=== PATIENT | female | born 1970 | race Caucasian/White ===

== ENCOUNTER 2016-09-09 07:30 | Emergency (ER) | payer OTHER ==
[2016-09-09] MEDS ORDERED: Ondansetron INJ* 2 MG/ML VIAL IV ONE (08:00)
[2016-09-09] MEDS ORDERED: Famotidine IV* 10 MG/ML 2 ML (20 mg) IV ONE (08:00)
[2016-09-09] MEDS ORDERED: Morphine INJ* 2 MG/ML 1 ML CARPUJECT IV ONE ×2 (08:00→10:17)
[2016-09-09] MEDS ORDERED: Acetaminophen TAB* 325 MG PO ONE ×2 (08:00→09:00)
[2016-09-09] MEDS: NS 0.9% 1000 ML* 2,000 ML IV ONE ×2 (08:36→10:40)
[2016-09-09 08:41] LABS: Hematocrit 44 % (35-47); Hemoglobin 14.8 g/dl (12.0-16.0); Mean Corpuscular HGB Conc 34 g/dl (31-36); Mean Corpuscular Hemoglobin 29 pg (27-31); Mean Corpuscular Volume 85 fL (80-97); Mean Platelet Volume 9 um3 (7.4-10.4); Red Blood Count 5.17 10^6/ul (4.0-5.4); Red Cell Distribution Width 13 % (10.5-15); White Blood Count 8.5 10^3/ul (3.5-10.8)
[2016-09-09 08:54] LABS: Albumin 3.3 g/dL (3.2-5.2); BUN/Creatinine Ratio 25.8 (8-20); C Reactive Protein 6.98 mg/L (< 5.00); Calcium 8.7 mg/dL (8.6-10.3); EGFR African American 123.5 (>60); Globulin 3.6 g/dL (2-4); Magnesium 1.6 mg/dL (1.9-2.7); Potassium 3.7 mmol/L (3.5-5.0); Total Bilirubin 0.9 mg/dL (0.2-1.0); Total Protein 6.9 g/dL (6.4-8.9)
--- NOTE | 2016-09-09 10:29 | ED ---
Influenza-Like Illness - HPI Summary HPI Summary: Patient is a 46yo type 1 diabetic who presents to ED with 2 hours of severe muscle aches, N/V, headache and abdominal pain. She states she feels it is the flu, but has received the flu vaccine this year. She has vomited 2x and continues to be nauseous. Fever highest at 101.3. Denies sick contacts or travel. Type 1 diabetic, but otherwise healthy and controls here sugars well at home. Today glucose is 243. - History of Current Complaint Chief Complaint: EDFluSymptoms Time Seen by Provider: 09/09/16 07:55 Hx Obtained From: Patient Onset/Duration: Sudden Onset Severity: Moderate Associated Signs & Symptoms: Fever, T Max - 101.3, Myalgia, Headache, Vomiting - Risk Factors Influenza Risk Factors: Chronic Medical or Immunosuppresive Condition - diabetic - Allergy/Home Medications Allergies/Adverse Reactions: Allergies Allergy/AdvReac Type Severity Reaction Status Date / Time No Known Allergies Allergy Verified 09/09/16 07:34 PMH/Surg Hx/FS Hx/Imm Hx Previously Healthy: Yes Endocrine/Hematology History: Reports: Hx Diabetes - type 1 Denies: Hx Thyroid Disease, Hx Anemia Cardiovascular History: Reports: Hx Hypercholesterolemia, Hx Hypertension Respiratory History: Denies: Hx Asthma, Hx Chronic Obstructive Pulmonary Disease (COPD) GI History: Denies: Hx Jaundice, Hx Ulcer Neurological History: Reports: 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 - Surgical History Surgery Procedure, Year, and Place: cyst drainage Infectious Disease History: No Infectious Disease History: Denies: Hx Hepatitis, Hx Human Immunodeficiency Virus (HIV), History Other Infectious Disease, Traveled Outside the in Last 30 Days - Family History Known Family History: Positive: None - Social History Occupation: Employed Full-time Lives: With Family Alcohol Use: Rare Alcohol Amount: holidays Hx Substance Use: No Substance Use Type: Reports: None Hx Tobacco Use: No Smoking Status (MU): Never Smoked Tobacco Do You Chew or Dip Tobacco: No Review of Systems Positive: Fever, Fatigue Eyes: Negative ENT: Negative Cardiovascular: Negative Respiratory: Negative Positive: Abdominal Pain, Vomiting Genitourinary: Negative Positive: no symptoms reported Positive: Myalgia - diffuse Skin: Negative Positive: Headache Psychological: Normal All Other Systems Reviewed And Are Negative: Yes Physical Exam Triage Information Reviewed: Yes Vital Signs On Initial Exam: Initial Vitals Temp Pulse Resp BP Pulse Ox 99.7 F 105 18 115/77 100 09/09/16 07:31 09/09/16 07:31 09/09/16 07:31 09/09/16 07:31 09/09/16 07:31 Vital Signs Reviewed: Yes Appearance: Positive: Ill-Appearing, Pain Distress Skin: Positive: Warm, Skin Color Reflects Adequate Perfusion Head/Face: Positive: Normal Head/Face Inspection Eyes: Positive: Normal, Conjunctiva Clear ENT: Positive: Pharynx normal Neck: Positive: Supple, Nontender Respiratory/Lung Sounds: Positive: Clear to Auscultation, Breath Sounds Present Cardiovascular: Positive: Normal Abdomen Description: Positive: Soft, Other: - tender in all 4 quadrants Bowel Sounds: Positive: Present Musculoskeletal: Positive: Pain @ - diffuse tenderness Neurological: Positive: Normal, Sensory/Motor Intact Psychiatric: Positive: Normal AVPU Assessment: Alert - Recluse Coma Scale Coma Scale Total: 15 Diagnostics - Vital Signs Vital Signs Temp Pulse Resp BP Pulse Ox 09/09/16 09:30 89 130/85 97 09/09/16 09:00 101 F 89 113/63 92 09/09/16 08:36 16 09/09/16 08:30 101 125/78 99 09/09/16 08:00 94 116/78 97 09/09/16 07:52 88 98 09/09/16 07:50 103/59 09/09/16 07:31 99.7 F 105 18 115/77 100 - Laboratory Lab Results: Lab Results 09/09/16 09/09/16 09/09/16 Range/Units 07:53 08:30 08:30 WBC 8.5 (3.5-10.8) 10^3/ul RBC 5.17 (4.0-5.4) 10^6/ul Hgb 14.8 (12.0-16.0) g/dl Hct 44 (35-47) % MCV 85 (80-97) fL MCH 29 (27-31) pg MCHC 34 (31-36) g/dl RDW 13 (10.5-15) % Plt Count 131 L (150-450) 10^3/ul MPV 9 (7.4-10.4) um3 Neut % (Auto) 92.1 H (38-83) % Lymph % (Auto) 3.8 L (25-47) % Merrick % (Auto) 3.6 (1-9) % Eos % (Auto) 0.4 (0-6) % Baso % (Auto) 0.1 (0-2) % Absolute Neuts (auto) 7.8 H (1.5-7.7) 10^3/ul Absolute Lymphs (auto) 0.3 L (1.0-4.8) 10^3/ul Absolute Monos (auto) 0.3 (0-0.8) 10^3/ul Absolute Eos (auto) 0 (0-0.6) 10^3/ul Absolute Basos (auto) 0 (0-0.2) 10^3/ul Absolute Nucleated RBC 0 10^3/ul Nucleated RBC % 0 Sodium 135 (133-145) mmol/L Potassium 3.7 (3.5-5.0) mmol/L Chloride 101 (101-111) mmol/L Carbon Dioxide 28 (22-32) mmol/L Anion Gap 6 (2-11) mmol/L BUN 17 (6-24) mg/dL Creatinine 0.66 (0.51-0.95) mg/dL Est GFR ( Amer) 123.5 (>60) Est GFR (Non-Af Amer) 96.0 (>60) BUN/Creatinine Ratio 25.8 H (8-20) Glucose 254 H (70-100) mg/dL POC Glucose (mg/dL) 243 H (74-106) mg/dL Lactic Acid (0.5-2.0) mmol/L Calcium 8.7 (8.6-10.3) mg/dL Magnesium 1.6 L (1.9-2.7) mg/dL Total Bilirubin 0.90 (0.2-1.0) mg/dL AST 19 (13-39) U/L ALT 24 (7-52) U/L Alkaline Phosphatase 70 (34-104) U/L C-Reactive Protein 6.98 H (< 5.00) mg/L Total Protein 6.9 (6.4-8.9) g/dL Albumin 3.3 (3.2-5.2) g/dL Globulin 3.6 (2-4) g/dL Albumin/Globulin Ratio 0.9 L (1-3) Lipase 13 (11.0-82.0) U/L Influenza A (Rapid) (Negative) Influenza B (Rapid) (Negative) 09/09/16 09/09/16 Range/Units 08:30 09:34 WBC (3.5-10.8) 10^3/ul RBC (4.0-5.4) 10^6/ul Hgb (12.0-16.0) g/dl Hct (35-47) % MCV (80-97) fL MCH (27-31) pg MCHC (31-36) g/dl RDW (10.5-15) % Plt Count (150-450) 10^3/ul MPV (7.4-10.4) um3 Neut % (Auto) (38-83) % Lymph % (Auto) (25-47) % Merrick % (Auto) (1-9) % Eos % (Auto) (0-6) % Baso % (Auto) (0-2) % Absolute Neuts (auto) (1.5-7.7) 10^3/ul Absolute Lymphs (auto) (1.0-4.8) 10^3/ul Absolute Monos (auto) (0-0.8) 10^3/ul Absolute Eos (auto) (0-0.6) 10^3/ul Absolute Basos (auto) (0-0.2) 10^3/ul Absolute Nucleated RBC 10^3/ul Nucleated RBC % Sodium (133-145) mmol/L Potassium (3.5-5.0) mmol/L Chloride (101-111) mmol/L Carbon Dioxide (22-32) mmol/L Anion Gap (2-11) mmol/L BUN (6-24) mg/dL Creatinine (0.51-0.95) mg/dL Est GFR ( Amer) (>60) Est GFR (Non-Af Amer) (>60) BUN/Creatinine Ratio (8-20) Glucose (70-100) mg/dL POC Glucose (mg/dL) (74-106) mg/dL Lactic Acid 0.8 (0.5-2.0) mmol/L Calcium (8.6-10.3) mg/dL Magnesium (1.9-2.7) mg/dL Total Bilirubin (0.2-1.0) mg/dL AST (13-39) U/L ALT (7-52) U/L Alkaline Phosphatase (34-104) U/L C-Reactive Protein (< 5.00) mg/L Total Protein (6.4-8.9) g/dL Albumin (3.2-5.2) g/dL Globulin (2-4) g/dL Albumin/Globulin Ratio (1-3) Lipase (11.0-82.0) U/L Influenza A (Rapid) Negative (Negative) Influenza B (Rapid) Negative (Negative) Result Diagrams: 09/09/16 08:30 09/09/16 08:30 Lab Statement: Any lab studies that have been ordered have been reviewed, and results considered in the medical decision making process. Flu Symptom Course/Dx - Course Course Of Treatment: Patient negative for flu. Type 1 diabetic. Glucose at 243. Otherwise healthy. N/V and muscle aches improved with fluids and medications. Morphine given twice d/t new onset KAY while in ED. Patient improved and feeling OK to go home and follow up with PCP. Prescription for zofran given. Patient agrees with plan. Provider sent Dr. Rubio information regarding visit. - Diagnoses Differential Diagnosis/HQI/PQRI: Positive: Pneumonia, Upper Respiratory Infection Provider Diagnoses: Nausea & vomiting - Physician Notifications Instructed by Provider To: Have Pt Call For Appt. Discharge - Discharge Plan Condition: Stable Disposition: HOME Prescriptions: Ondansetron ODT TAB* [Zofran Odt TAB*] 4 mg PO Q6H PRN #15 tab.odt MDD 6 PRN Reason: Nausea Patient Education Materials: Acute Nausea and Vomiting (ED) Forms: *Work Release Referrals: Orlando Rubio MD [Primary Care Provider] - Additional Instructions: Tylenol 650 every 8 hours as needed for fever and discomfort Rest for the next few days while you are recovering. You may take Zofran as prescribed to you for nausea. Follow up with your PCP. Call tommorow to make appt. Closely follow your sugars during this time, and checking your glucose levels more often than you normally would.
[2016-09-09 10:40] VITALS: BP 114/72
== END 2016-09-09 11:44 | disposition home or self-care (01) ==
LOC: ED 07:30
DX: R11.2 Nausea with vomiting, unspecified (principal); E10.9 Type 1 diabetes mellitus without complications
CPT/HCPCS: 36415; 80053; 83605; 83690; 83735; 85025; 86140; 87502; 99283; A9270-GY; J2270; J2405

== ENCOUNTER 2016-10-01 13:14 | Emergency (ER) | payer OTHER ==
[2016-10-01 13:50] VITALS: BP 117/72
--- NOTE | 2016-10-01 15:08 | UC ---
Back Pain HPI - HPI Summary HPI Summary: complaint of lower back pain that was radiating into her right leg which started this morning pain has been intermittent ambulating makes the pain worse NSAIDS lessen the pain denies any trauma, heavy lifting denies fever and incontinence took some ibuprofen with some relief - History of Current Complaint Chief Complaint: UCBackPain Stated Complaint: LOW BACK AND LEG PAIN Time Seen by Provider: 10/01/16 14:59 Hx Obtained From: Patient Hx Last Menstrual Period: POST MENOPAUSAL Onset/Duration: Sudden Onset, Lasting Hours, Still Present Character: Dull, Aching Aggravating: Movement Alleviating: OTC Meds Associated Signs And Symptoms: Positive: Negative - Allergies/Home Medications Allergies/Adverse Reactions: Allergies Allergy/AdvReac Type Severity Reaction Status Date / Time No Known Allergies Allergy Verified 09/09/16 07:34 PMH/Surg Hx/FS Hx/Imm Hx Previously Healthy: Yes Endocrine History Of: Reports: Diabetes - type 1, Thyroid Disease - HYPOTHYROID Cardiovascular History Of: Reports: Hypertension Denies: Cardiac Disorders Respiratory History Of: Denies: COPD, Asthma GI/ History Of: Denies: Ulcer - Surgical History Surgical History: Yes Surgery Procedure, Year, and Place: cyst drainage - Family History Known Family History: Positive: None - Social History Occupation: Employed Full-time Lives: With Family Alcohol Use: Rare Alcohol Amount: holidays Substance Use Type: None Smoking Status (MU): Never Smoked Tobacco - Immunization History Most Recent Influenza Vaccination: none Most Recent Tetanus Shot: within 10 years Most Recent Pneumonia Vaccination: never Review of Systems Constitutional: Negative Skin: Negative Eyes: Negative ENT: Negative Respiratory: Negative Cardiovascular: Negative Gastrointestinal: Negative Genitourinary: Negative Motor: Negative Neurovascular: Negative Musculoskeletal: Other: - lower back pain Neurological: Negative Psychological: Negative All Other Systems Reviewed And Are Negative: Yes Physical Exam Triage Information Reviewed: Yes Appearance: No Pain Distress, Well-Nourished Vital Signs: Initial Vital Signs Temp 98.3 F 10/01/16 13:46 Pulse 63 10/01/16 13:46 Resp 16 10/01/16 13:46 BP 117/72 10/01/16 13:46 Pulse Ox 100 10/01/16 13:46 Vital Signs Reviewed: Yes Eyes: Positive: Conjunctiva Clear ENT: Positive: Pharynx normal Neck: Positive: Supple, Nontender Respiratory: Positive: Lungs clear, Normal breath sounds Cardiovascular: Positive: RRR, No Murmur, Pulses Normal Abdomen Description: Positive: Nontender, No Organomegaly, Soft Bowel Sounds: Positive: Present Musculoskeletal: Positive: No Edema, Other: - right sided paraspinal lumbar tenderness no ecchymosis no pain with percussion of spine Neurological: Positive: Other: - DTR reflexes intact Psychological Exam: Normal Skin Exam: Normal Back Pain Course/Dx - Course Course Of Treatment: exam completed. no red flags to warrant imaging. will treat with muscle relaxer NSAIDS PT referral - Differential Dx/Diagnosis Differential Diagnosis/HQI/PQRI: Herniated Disc, Strain, Sprain Provider Diagnoses: lower back pain with radiculopathy Discharge - Discharge Plan Condition: Stable Disposition: HOME Prescriptions: Cyclobenzaprine TAB* [Flexeril TAB*] 10 mg PO BEDTIME #7 tab Patient Education Materials: Lumbar Radiculopathy (ED) Referrals: Orlando Rubio MD [Primary Care Provider] - Additional Instructions: Start flexeril as directed. Do not drink alcohol or drive while taking flexeril. Please call physical therapy for further evaluation and treatment. Take ibuprofen for fever or pain. Increase fluids and rest. Please review your discharge instructions. If your symptoms do not improve please call your primary care provider or return to urgent care.
== END 2016-10-01 15:28 | disposition home or self-care (01) ==
LOC: UCEAST 13:14
DX: M54.5 Low back pain (principal); M54.16 Radiculopathy, lumbar region
CPT/HCPCS: 99212; G0463

== ENCOUNTER 2016-12-11 07:48 | Observation (INO) | payer OTHER ==
[2016-12-11] MEDS ORDERED: Aspirin Low Dose CHEW TAB* 81 MG PO ONE (07:58)
[2016-12-11] MEDS ORDERED: Adenosine* 3 MG/ML VIAL ONE (08:03)
[2016-12-11] MEDS ORDERED: NS 0.9% 1000 ML* 1,000 ML IV ONE (08:14)
[2016-12-11] MEDS ORDERED: Adenosine* 3 MG/ML VIAL IV PUSH ONE (08:14)
[2016-12-11 08:30] LABS: Hematocrit 45 % (35-47); Hemoglobin 15.4 g/dl (12.0-16.0); Mean Corpuscular HGB Conc 34 g/dl (31-36); Mean Corpuscular Hemoglobin 29 pg (27-31); Mean Corpuscular Volume 85 fL (80-97); Mean Platelet Volume 10 um3 (7.4-10.4); Red Blood Count 5.29 10^6/ul (4.0-5.4); Red Cell Distribution Width 14 % (10.5-15); White Blood Count 7.2 10^3/ul (3.5-10.8)
[2016-12-11 08:40] LABS: Albumin 3.6 g/dL (3.2-5.2); BUN/Creatinine Ratio 18.4 (8-20); Calcium 9.2 mg/dL (8.6-10.3); EGFR African American 89.8 (>60); EGFR Non-African American 69.8 (>60); Globulin 4.1 g/dL (2-4); Magnesium 1.7 mg/dL (1.9-2.7); Potassium 3.7 mmol/L (3.5-5.0); Total Bilirubin 0.6 mg/dL (0.2-1.0); Total Protein 7.7 g/dL (6.4-8.9)
[2016-12-11 08:41] LABS: Troponin I 0.02 ng/mL (<0.04)
--- NOTE | 2016-12-11 08:43 | RAD ---
Indication: Tachycardia. Comparison: February 25, 2015 chest radiograph and December 07, 2014 CT abdomen. Technique: Upright AP 0820 hours Report: Mildly elevated lung volumes with both mild prominence and patchy rarefaction of interstitial markings. No alveolar consolidation, focal pulmonary lesion, pleural effusion, pneumothorax. Negative for cardiomegaly. Unremarkable central pulmonary vasculature and mediastinal contours. Cutaneous pacemaker pads noted. IMPRESSION: Stigmata of potential chronic obstructive pulmonary disease. No acute cardiopulmonary process evident.
[2016-12-11 09:06] LABS: T4 12.09 mcg/mL (6.09-12.23)
[2016-12-11 09:07] LABS: TSH (Thyroid Stimulating Horm) 4.91 mcIU/mL (0.34-5.60)
[2016-12-11] MEDS ORDERED: Potassium Chlor TAB* 20 MEQ TAB.ER PO ONE (11:13)
[2016-12-11] MEDS ORDERED: Magnesium Sulfate 2 GM IV* 2 GM/50 ML BAG IVPB ONE (11:15)
--- NOTE | 2016-12-11 14:39 | ECHO ---
Patient: RAMESH WOODS Rec#: [id number] : 1970 Date: 12/11/2016 Age: 46y Height: 165.1 cm / 65.0 in Weight: 68.95 kg / 152.0 lbs Sex: F BSA: 1.76 Room#: 444 Admit Date#: 12/11/2016 Type: Inpatient Referring: RUSS DINERO MD Reading: Navin Marmolejo MD Public Health Service Officer: Michelle Reddy,RDCS,RDMS CC: Orlando Rubio MD Transthoracic Echocardiogram Indication: SVT BP: 128/101 HR: 63 Rhythm: NSR Indications Abnormal Electrocardiogram Findings History: DM, HTN, HLD Technical Comments: The study quality is fair. Completed 1220 Left Ventricle: The left ventricular chamber size is normal. Mild concentric left ventricular hypertrophy is observed. Global left ventricular wall motion and contractility are within normal limits. There is normal left ventricular systolic function. The estimated ejection fraction is 50-55%. Normal left ventricular diastolic filling is observed. Left Atrium: The left atrium is slightly dilated. Right Ventricle: The right ventricular chamber size and systolic function are within normal limits. Right Atrium: The right atrial cavity size is normal. Aortic Valve: The aortic valve leaflets are mildly thickened. There is no evidence of aortic regurgitation. There is no evidence of aortic stenosis. Mitral Valve: The mitral valve leaflets are mildly thickened. There is no evidence of mitral regurgitation. There is no evidence of mitral stenosis. Tricuspid Valve: The tricuspid valve leaflets are normal. There is trace tricuspid regurgitation. Unable to estimate the right ventricular systolic pressure. Pulmonic Valve: The pulmonic valve structure is not well visualized. There is no evidence of pulmonic regurgitation. Pericardium: There is no significant pericardial effusion. Aorta: The aortic root appears normal. There is no dilatation of the aortic arch. Pulmonary Artery: The main pulmonary artery is not well visualized. Venous: The inferior vena cava appears normal. There is a greater than 50% respiratory change in the inferior vena cava dimension. Conclusions Mild concentric left ventricular hypertrophy is observed. Global left ventricular wall motion and contractility are within normal limits. There is normal left ventricular systolic function. The estimated ejection fraction is 50-55%. The right ventricular chamber size and systolic function are within normal limits. There is no evidence of aortic regurgitation. There is no evidence of mitral regurgitation. There is trace tricuspid regurgitation. Unable to estimate the right ventricular systolic pressure. There is no significant pericardial effusion. Measurements Name Value Normal Range RVIDd (AP) 2D 1.8 cm (0.9 - 2.6) RVDdMajor (2D) 2.2 cm (2.2 - 4.4) RAd ISD 4CH 4.4 cm (3.4 - 4.9) RA (A4C)W 3.6 cm (2.9 - 4.6) IVSd (2D) 1.1 cm (0.6 - 1) LVPWd (2D) 1.1 cm (0.6 - 1) LVIDd (2D) 4 cm (3.6 - 5.4) LVIDs (2D) 2.7 cm - LV FS (2D) 33 % (25 - 45) Aortic Annulus 2 cm (1.4 - 2.6) Ao root diameter (2D) 2.7 cm (2.1 - 3.5) Ascending Ao 2.6 cm (2.1 - 3.4) Aortic arch 2.5 cm (1.8 - 3.4) LA dimension (AP) 2D 3.3 cm (2.3 - 3.8) LAd ISD 4CH 5.4 cm (2.9 - 5.3) LA ISD 4CH W 4.2 cm (2.5 - 4.5) Name Value Normal Range LA ESV SP 4CH (A/L) 58.14 ml - LA ESV SP 2CH (A/L) 43.68 ml - LA ESV BP (A/L) 51.2 ml - LA ESV BP (A/L) index 29 ml/m2 - LA ESV SP 4CH (MOD) 55.6 ml - LA ESV SP 2CH (MOD) 40.19 ml - Name Value Normal Range MV E-wave Vmax 0.8 m/sec - MV deceleration time 194 msec - MV A-wave Vmax 0.7 m/sec - MV E:A ratio 1.1 ratio - P. vein S-wave Vmax 0.4 m/sec - P. vein D-wave Vmax 0.2 m/sec - P. vein A-wave duration 83.1 msec - LV septal e' Vmax 0.09 m/sec - LV lateral e' Vmax 0.08 m/sec - LV E:e' septal ratio 9 ratio - LV E:e' lateral ratio 10 ratio - Name Value Normal Range AV Vmax 1.3 m/sec - AV VTI 27.4 cm - AV peak gradient 7 mmHg - AV mean gradient 3.8 mmHg - LVOT Vmax 0.9 m/sec - LVOT VTI 17.5 cm - LVOT peak gradient 3.2 mmHg - LVOT mean gradient 1.7 mmHg - CHARO Vmax 0.8 m/sec - Name Value Normal Range RAP 8 mmHg - IVC diameter 2.1 cm - Name Value Normal Range PV Vmax 0.6 m/sec - PV peak gradient 1.4 mmHg -
--- NOTE | 2016-12-11 16:08 | HP ---
CC: Dr. Rubio HISTORY AND PHYSICAL: DATE OF ADMISSION: 12/11/16 PRIMARY CARE PHYSICIAN: Dr. Rubio CHIEF COMPLAINT: Palpitations, lightheadedness. HISTORY OF PRESENT ILLNESS: Ms. Corea is a pleasant 46-year-old female with past medical histor y of hypertension, history of Hilda's thyroiditis, and type 1 diabetes with insulin pump, who pr esents to the hospital with palpitations and dizziness. The patient stated she was in her usual sta te of health, woke up this morning after sleeping poorly, and felt palpitations as soon as she woke up. She is unclear if this woke her from sleep or if she noticed it after she woke up. She also fe lt nausea with some dizziness and some left arm tightness. She thought her blood sugars may have be en low, so she checked her BG, it was 150. She was planning to check her blood pressure and noticed the heart rate on the blood pressure machine showed it was 164. She called Dr. Rubio's office, he to ld her to come to the ED and call EMS. The patient was still set on going to work. She drove her c o-worker and dropped her off there, but then was still feeling unwell and some shortness of breath, so she decided to drive herself to the hospital for further evaluation. She denies any chest pain, no emesis, diaphoresis, abdominal pain. She states she has very low stress in her life at the [facility], has not had any recent illnesses. She does not smoke, denies any alcohol use, and has not had an y changes in her medication recently. She states she drinks "lots of coffee," although when further asked to clarify, she states she has about 2 cups a day, although they may be slightly bigger cups than normal. She does not use any other caffeinated beverages. In the emergency department, the patient was found to be in SVT with a heart rate in the 170s. Vaga l maneuvers were attempted, which did not resolve the SVT. The patient received 6 mg of adenosine w ith resolution and returned to normal sinus rhythm. PAST MEDICAL HISTORY: 1. Type 1 diabetes. 2. Hypertension. 3. Hilda's thyroiditis. PAST SURGICAL HISTORY: 1. Appendectomy. 2. Tonsillectomy. HOME MEDICATIONS: 1. Synthroid 75 mcg by mouth daily. 2. Lisinopril 20 mg by mouth daily. 3. Atorvastatin 80 mg by mouth daily. 4. Insulin pump. ALLERGIES: The patient has no known drug allergies. FAMILY HISTORY: Significant for a father with kidney cancer, mother with hypertension, brother with hypertension, and sister with hypertension. SOCIAL HISTORY: The patient was [facility]. She denies any tobacco abuse, illicit drug use, or a lcohol use. REVIEW OF SYSTEMS: A 12-point review of systems is negative except for that as noted in the HPI. PHYSICAL EXAMINATION GENERAL: The patient is a middle-aged female lying in bed, in no apparent distress. VITAL SIGNS: On admission temperature 98.1, heart rate of 175, respiratory rate of 20, O2 saturatio n 100% on room air, blood pressure 124/107. Subsequent improvement in the heart rate into the 70s a nd normal sinus rhythm. HEENT: Moist mucous membranes. Pupils equal, round and reactive to light and accommodation. Anict allen sclerae. NECK: No cervical adenopathy. LUNGS: Clear to auscultation bilaterally. No wheezes, rales, or rhonchi. CARDIOVASCULAR: Regular rate and rhythm. S1 and S2 present. No murmurs, gallops, or rubs. ABDOMEN: Soft, nontender, nondistended. Bowel sounds positive. EXTREMITIES: No cyanosis, clubbing, or edema. NEUROLOGIC: The patient is alert and oriented x3. No focal neurological deficits. SKIN: Warm, dry, and well perfused. LABORATORY DATA: White blood cell count of 7.2, hematocrit 45, and platelets of 176. Sodium 134, potassium 3.7, chloride of 100, carbon dioxide of 25, BUN of 16, creatinine of 0.87, glucose of 276, lactic acid of 1.4, magnesium 1.7. LFTs are within normal limits. Troponin of 0.02. TSH of 4.91. Free T4 of 12.09. Chest x- ray personally reviewed shows no acute disease. EKG personally review ed initially shows narrow-complex tachycardia regular with diffuse ST depressions. Repeat EKG shows normal sinus rhythm with no ischemic changes. ASSESSMENT AND PLAN: New supraventricular tachycardia in a 46-year-old female with past medical his tory of hypertension, Hilda's thyroiditis, and type 1 diabetes: 1. Supraventricular tachycardia. The patient responded to adenosine in the emergency department an d has since been in normal sinus rhythm. She received a dose of aspirin as well, unclear what adam ered this. The patient's thyroid tests are within normal limits. She was instructed to hold off on any caffeine for now. We will order an echocardiogram, continue to monitor the patient on telemetry and trend her troponins. Dr. Marmolejo was consulted and will evaluate the patient to see if there is any further testing needed while she is hospitalized. We will hold off on any standing medications for now. We will replete the patient's potassium and magnesium. 2. Hypertension. Continue the patient's home lisinopril. 3. 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 Continue home Synthroid. 4. Type 1 diabetes. We will allow the patient to manage sugars with her insulin pump on her home s ettings. 5. DVT prophylaxis. ALONSO galdamez. TIME SPENT: Total time spent on this admission was 45 minutes, with over half the time spent face-t o-face with the patient in counseling and coordinating care. [id number]/[facility] #: [id number]
[2016-12-11] MEDS ORDERED: Atorvastatin* 40 MG TAB PO SCH (21:00)
[2016-12-12 05:42] LABS: BUN/Creatinine Ratio 20.3 (8-20); Calcium 8.5 mg/dL (8.6-10.3); EGFR African American 127.9 (>60); EGFR Non-African American 99.5 (>60); Magnesium 1.9 mg/dL (1.9-2.7)
[2016-12-12] MEDS ORDERED: Levothyroxine TAB* 75 MCG TAB PO SCH (06:00)
--- NOTE | 2016-12-12 07:25 | PN ---
Subjective - Subjective Reason for Note: Discharge Note History: Ramesh Woods is a 46 WF who has longstanding T1D and hypercholesterolemia. She has no prior cardiac history. I have obtained her current history from the patient and also from Dr. Theron Mejia's admitting H and P. She woke with palpitations. After going to work and calling me, she went to the ED as instructed and was found to have a SVT at a rate of 164 bpm. This was accompanied by some chest discomfort and nausea. It was terminated by the use of adenosine. She has had no further dysrhythmias on her telemetry. Her troponin I series were slightly raised. This morning she feels normal and wants to go home. Active Problems: Active Problems Hypertension, essential, benign (Acute) I10 Supraventricular tachycardia (Acute) I47.1 Troponin I above reference range (Acute) R74.8 Continuous subcutaneous insulin infusion pump (Chronic) Diabetes mellitus type 1 (Chronic) E10.9 Hypercholesterolemia (Chronic) E78.0 Hypothyroidism (Chronic) E03.9 Current Medications: Current Medications Atorvastatin Calcium (Lipitor*) 80 mg PO BEDTIME [facility] Last Admin: 12/11/16 19:45 Dose: 80 mg Levothyroxine Sodium (Synthroid Tab*) 75 mcg PO 0600 [facility] Last Admin: 12/12/16 05:16 Dose: 75 mcg Lisinopril (Prinivil Tab*) 20 mg PO DAILY [facility] Home Medications: Home Medications Medication Instructions Recorded Confirmed Type Atorvastatin* [Lipitor*] 80 mg PO BEDTIME 10/01/13 12/11/16 History Lisinopril TAB* [Prinivil TAB*] 20 mg PO DAILY 10/01/13 12/11/16 History Insulin Pump Therapy [place] 1 units SUBCUT SEE INSTRUCTIONS 12/11/16 12/12/16 History MDD 90 units Levothyroxine TAB* [Synthroid 75 1 tab PO DAILY 12/11/16 12/11/16 History MCG TAB*] amLODIPine TAB* [Norvasc 5 mg TAB*] 5 mg PO DAILY 12/11/16 12/11/16 History Allergies: Allergies Allergy/AdvReac Type Severity Reaction Status Date / Time No Known Allergies Allergy Verified 09/09/16 07:34 Objective - Vital Signs Vital Signs: Vital Signs 12/11/16 12/11/16 12/11/16 09:36 10:00 10:19 Temperature 98.8 F Pulse Rate 79 71 Respiratory 17 16 Rate Blood Pressure 140/88 122/86 (mmHg) O2 Sat by Pulse 97 97 Oximetry 12/11/16 12/11/16 12/11/16 10:32 12:42 16:16 Temperature 97.7 F 98.1 F 98.0 F Pulse Rate 62 68 64 Respiratory 16 16 17 Rate Blood Pressure 128/101 113/81 114/79 (mmHg) O2 Sat by Pulse 100 97 100 Oximetry 12/11/16 12/11/16 12/12/16 19:15 23:46 04:15 Temperature 98.8 F 97.6 F 97.4 F Pulse Rate 73 62 65 Respiratory 16 16 16 Rate Blood Pressure 130/87 114/74 119/73 (mmHg) O2 Sat by Pulse 99 99 99 Oximetry - Intake and Output Intake and Output: Intake & Output 12/09/16 12/10/16 12/11/16 12/12/16 11:59 11:59 11:59 11:59 Intake Total 2136 Balance 2136 Weight 153 lb 14.4 oz Intake: IV Fluids 47 IVPB 50 Oral 2040 Other: # Bowel Movements 0 # Voids 0 ADLs: Meal Record Start: 12/11/16 10: 32 Freq: DAILY@0900,1400,1800 Status: Active Created 12/11/16 10:32 System (Rec: 12/11/16 10:32 System [id number]) Document 12/11/16 12:43 [id number] (Rec: 12/11/16 12:43 [id number] TELE-C05) Document 12/11/16 18:00 [id number] (Rec: 12/11/16 22:09 [id number] TELE-C01) Intake and Output Start: 12/11/16 07: 52 Freq: Status: Active Created 12/11/16 07:52 System (Rec: 12/11/16 07:52 System [id number]) Intake and Output Start: 12/11/16 10: 32 Freq: DAILY@0600,1400,2200 Status: Active Created 12/11/16 10:32 System (Rec: 12/11/16 10:32 System TELE-C02) Document 12/11/16 14:00 [id number] (Rec: 12/11/16 15:09 [id number] TELE-C05) Document 12/11/16 22:00 [id number] (Rec: 12/12/16 00:29 [id number] TELE-C35) Document 12/12/16 06:00 [id number] (Rec: 12/12/16 06:38 [id number] TELE-C35) - Physical Exam General: No Cyanosis, No Anemia, No Jaundice, No Clubbing Lungs and Chest: Yes: Chest Expansion Full, Chest Expansion Symetrica, Percussion Note Resonant, Vessicular Breath Sounds. No: Crackles, Wheezes Heart Rate and Rhythm: Regular JVP: Not Elevated Additional Cardiovascular: Yes: Normal Heart Sounds. No: Heart Murmur, Pedal Edema Abdominal Exam: Yes: Soft, Bowel Sounds Present. No: Distention, Abdominal Tenderness Results - Results Lab Results: Laboratory Results - last 24 hr 12/11/16 12/11/16 12/11/16 12:05 12:09 15:23 Sodium Potassium Chloride Carbon Dioxide Anion Gap BUN Creatinine Est GFR ( Amer) Est GFR (Non-Af Amer) BUN/Creatinine Ratio Glucose POC Glucose (mg/dL) 137 H Calcium Magnesium Troponin I 0.08 H* 0.07 H* 12/11/16 12/11/16 12/12/16 17:15 20:02 03:06 Sodium Potassium Chloride Carbon Dioxide Anion Gap BUN Creatinine Est GFR ( Amer) Est GFR (Non-Af Amer) BUN/Creatinine Ratio Glucose POC Glucose (mg/dL) 79 190 H 49 L Calcium Magnesium Troponin I 12/12/16 12/12/16 03:29 05:07 Sodium 134 Potassium 4.0 Chloride 103 Carbon Dioxide 27 Anion Gap 4 BUN 13 Creatinine 0.64 Est GFR ( Amer) 127.9 Est GFR (Non-Af Amer) 99.5 BUN/Creatinine Ratio 20.3 H Glucose 289 H POC Glucose (mg/dL) 141 H Calcium 8.5 L Magnesium 1.9 Troponin I Radiology Results: Patient Name: RAMESH WOODS Medical Record#: [id number] Ordering Physician: Jurgen Adler MD Acct.#: [id number] : 1970 Age: 46 Sex: F Location: EMERGENCY DEPARTMENT Exam Date: 12/11/16 075 ADM Status: REG ER Order Information: CHEST AP PORTABLE Accession Number: [id number] CPT: 48121 Indication: Tachycardia. Comparison: February 25, 2015 chest radiograph and December 07, 2014 CT abdomen. Technique: Upright AP 0820 hours Report: Mildly elevated lung volumes with both mild prominence and patchy rarefaction of interstitial markings. No alveolar consolidation, focal pulmonary lesion, pleural effusion, pneumothorax. Negative for cardiomegaly. Unremarkable central pulmonary vasculature and mediastinal contours. Cutaneous pacemaker pads noted. IMPRESSION: Stigmata of potential chronic obstructive pulmonary disease. No acute cardiopulmonary process evident. <Electronically signed by Surya Gottlieb MD in OV> 12/11/16838 Dictated By: Surya Gottlieb MD Dictated Date/Time: 12/11/16838 Transcribed Date/Time: 12/11/16836 Copy to: CC:Orlando Rubio MD; Jurgen Adler MD Imaging - [facility] Imaging - [place] [address] [address] ph ([phone]) ph ([phone]) ph ([phone]) 1 of 1 Other Results/Reports: Assessment - Problem List Assessment: Patient Problems Hypertension, essential, benign (Acute) Supraventricular tachycardia (Acute) Troponin I above reference range (Acute) Continuous subcutaneous insulin infusion pump (Chronic) Diabetes mellitus type 1 (Chronic) Hypercholesterolemia (Chronic) Hypothyroidism (Chronic) Plan: Supraventricular tachycardia (Acute) I47.1 Ramesh Woods presents for the first time with a narrow complex tachycardia. This could be a re-entrant tachycardia or atrial flutter as this is regular. I will obtain a cardiology consultation. I would like to establish the likelihood this is either a atrial flutter with a 2:1 block or a re-entrant tachycardia. We need to decide whether she requires an anti-arrhythmic at least to control rate if she should develop this again. In addition, whether she requires EPS studies. Troponin I above reference range (Acute) R74.8 The SVT was accompanied by chest pressure and nausea. She has a mild elevation in troponin I that are declining. This is likely due to demand ischemia. However, she has multiple risk factors for early CAD - most especially T1D, hyperlipidemia and hypertension. The transthoracic echocardiogram shows no evidence of any regional wall motion abnormalities. I think she requires a stress test -I have suggested to the patient we do this during this hospital stay Continuous subcutaneous insulin infusion pump (Chronic) She has adequate glycemic control - she is using an insulin pump. I recommend maintaining her usual management. Diabetes mellitus type 1 (Chronic) E10.9 She doesn't have tight glycemic control. We have no evidence this SVT was triggered by hypoglycemia - it is possible, but her measurement at the onset doesn't prove this. Hypercholesterolemia (Chronic) E78.0 Continue current Rx Hypothyroidism (Chronic) E03.9 Her TFTs are on target I discussed this with the patient. She wants to go home - she has children at home and an occupation to return to. I have explained that we need to look at this systematically. She agrees with this plan.
[2016-12-12] MEDS ORDERED: Lisinopril TAB* 10 MG PO SCH (09:00)
[2016-12-12] MEDS ORDERED: Perflutren Lipid Microsphere* 3 ML VIAL ONE (11:13)
--- NOTE | 2016-12-12 16:40 | PN ---
Progress Note - Progress Note Note: Discussion with Dr. Sol Vences: The exercise echocardiogram was normal. She discussed with the patient electrophysiological studies. She also raised the possibility of starting a betablocker - metoprolol 25 mg daily. I will discuss this with her as an outpatient as she has an appt at my office in 2 days. I will discharge her
[2016-12-12 17:27] VITALS: BP 130/88
--- NOTE | 2016-12-13 00:08 | CONS ---
CARDIOLOGY CONSULTATION REPORT: DATE OF CONSULT: 12/12/16 REASON FOR CONSULT: Supraventricular tachycardia and atherosclerotic risk. HISTORY OF PRESENT ILLNESS: Noemi is a very pleasant 46-year-old woman with type 1 diabetes, hypertension, and thyroid problems, who was in her usual state of health until yesterday when she awoke in the morning with palpitations and just not feeling well. She has had some nausea, dizziness, left arm tightness. She checked her sugars, but they were not low and she checked her blood pressure and the monitor revealed that she was tachycardic. She was referred to the emergency department where she was found to be in a regular supraventricular tachycardia at a rate of 170 beats a minute. She did not respond to vagal maneuver, but did respond to Adenocard. At the time I am seeing her, she was in normal sinus rhythm and feeling back to herself. The patient denies any awareness of snoring or sleep disorders, but points out she sleeps alone. She typically feels as if she has plenty of energy when she wakes up in the morning and exercises regularly and has had no recent decline in her exercise ability. She walks up to [facility]. The patient denies recent medication adjustments. She never uses alcohol. Drinks 2 cups of coffee in the morning. Denies any recreational drug use. The patient denies any recent fevers, chills, sweats, change in lifestyle habits. No recent trips. PAST MEDICAL HISTORY: Type 1 diabetes, hypertension, Hilda's thyroiditis, dyslipidemia. PAST SURGICAL HISTORY: Includes appendectomy and tonsillectomy. MEDICATIONS: Inpatient medications include: 1. Lipitor 80 mg q.h.s. 2. Synthroid 75 mcg a day. 3. Lisinopril 20 mg a day. 4. She is on an insulin pump. ALLERGIES: She has no known medication allergies. FAMILY HISTORY: Significant in that she is one of triplets. She has a sister with diabetes, a brother with hypertension. Her mother had hypertension. Her father had kidney cancer. SOCIAL HISTORY: The patient was born in [facility]. Currently, a single mother. Nonsmoker, non-alcohol user. No recreational drug use. Two cups of coffee in the morning. She has teenage children. REVIEW OF SYSTEMS: Review of systems was performed in detail. Negative for other than mentioned in the history of present illness. PHYSICAL EXAM: The patient is 5 feet 6 inches, weighs 153 pounds with a BMI of 24. Blood pressure 130/88, pulse is 76 and regular, oxygen saturation 99% on room air, temperature 98.6, respiratory rate 16. General Appearance: Middle- aged woman, appears comfortable, in no acute distress. Psychologically, pleasant and cooperative. Neurologically, awake, alert, and oriented to person , place, and time. Cranial nerves II through XII intact grossly. Normal sensory and motor function in the upper and lower extremities and normal gait. Skin: Warm, dry, olive complexion. No cyanosis or rashes. Insulin pump incidentally noted. HEENT: Pupils are equal and round. Mucous membranes moist. Tongue midline. Neck: Without appreciable increased JVP. Good carotid pulses without audible bruits. Lungs are clear with good effort. No wheezes, rales, or rhonchi. Coronary: S1, S2 regular without murmurs or rubs. Abdomen : No epigastric discomfort, nontender. No hepatosplenomegaly. Lower extremities had compression stockings on, were free of edema. DIAGNOSTIC STUDIES/LAB DATA: The patient's initial EKG in the emergency department at 0751, December 11, shows a narrow complex regular tachycardia at 164 beats a minute, QRS axis +75, P wave is not clearly seen, possibly retrograde based on leads II and III, and she had ST depression in the inferolateral leads diffusely up to 4 mm. 12-lead ECG from 12/11/16 at 0900 shows normal sinus rhythm, 70 beats a minute, QRS axis +60 with normal AV and IV conduction times, normal ST segments, no delta waves appreciated. Stress echo done today shows good exercise ability. She was able to exercise into stage 4 of the standard Chris protocol with no inducible ischemia. Labs: White count 7.2, hemoglobin 15.4, platelets 176, normal differential. Sodium 134, potassium 4.0, chloride 103, bicarb 27, BUN 13, creatinine 0.64, glucose 289 (low of 49, high of 289), magnesium 1.9. Troponin #1 0.02, troponin #2 0.08, troponin #3 0.07. Lactic acid 1.4. TSH 4.91. Chest x-ray showed stigmata consistent with possible COPD. No evidence of acute disease. Echocardiogram from 12/11/16 showed mild left ventricular hypertrophy with an ejection fraction of 50% to 55% and normal wall motion, normal valve function. Lipids from 03/29/16 shows total cholesterol of 200, triglycerides 48, LDL cholesterol 108, and HDL cholesterol 82. IMPRESSION AND PLAN: In summary, Noemi Corea is a 46-year-old woman, who presented with supraventricular tachycardia, symptomatic with palpitations, lightheaded, dizziness, not feeling well, nausea, and also with atherosclerotic risks of type 1 diabetes, hypertension, dyslipidemia, had very mild bump of troponins following several hours of her supraventricular tachycardia. 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 This could happen again in the right setting as it happened with sleep. The potential differential that could have led to an ectopic beat to trigger the dysrhythmia would include sleep apnea, although the history is not strong for this. Metabolic disturbances particularly hypoglycemia could be a factor and her thyroid levels appeared to be fine on her current Synthroid replacement. Options going forward would include a low-dose beta-tatiana to decrease the risk of ectopic beats. Nothing could be done and we can see if she has recurrent events. This is likely a curable reentrant tachyarrhythmia and other option would be to get a consultation with an electro-finance specialist to evaluate and discuss potential options of EP study for mapping and ablation, which I explained to her as potentially curative. For the patient's atherosclerotic risks, continuation with healthy lifestyle, management of blood pressure, sugar, and lipid levels. There is no evidence of inducible ischemia on her stress test. I suspect the mild elevation in troponins was secondary to demand ischemia from the dysrhythmia itself. I think the patient can be discharged either on her current meds or current meds with the addition of low-dose metoprolol 25 mg a day, XL compound. She can follow up in our office non-urgently and/or referral to an circulator as described above. CC: Dr. Orlando Rubio* [id number]/[facility] #: [id number]
--- NOTE | 2016-12-14 07:27 | ED ---
yuri Griggs Timothy, scribed for Jurgen Adler MD on 12/11/16 at 0755 . Palpitations / Dysrhythmia - HPI Summary HPI Summary: Noemi Corea is a 46 yo female presenting to [facility] with palpitations and dizziness/lightheadedness with nausea since 0620 this morning. She states her left hand also feels strange. Her heart rate is 177 per triage. She was recommended to present to [facility] by Dr. Rubio. She denies any current pain, and states she took all of her medications this morning. She denies any Hx of NC. Her MHx includes hypothyroidism, HLD, HTN, fingertip neuropathy, DM I. - History of Current Complaint Time Seen by Provider: 12/11/16 08:00 Hx Obtained From: Patient Onset/Duration: Sudden Onset, Lasting Hours, Still Present Timing: Constant Severity Initially: Moderate Severity Currently: Moderate Character: Fast Associated Signs & Symptoms: Lightheadedness, Dizzy - Allergy/Home Medications Allergies/Adverse Reactions: Allergies Allergy/AdvReac Type Severity Reaction Status Date / Time No Known Allergies Allergy Verified 09/09/16 07:34 Home Medications: Home Medications Insulin Pump Therapy [place] 12/11/16 [History] PMH/Surg Hx/FS Hx/Imm Hx Endocrine/Hematology History: Reports: Hx Diabetes - type 1, Hx Thyroid Disease - HYPOTHYROID Denies: Hx Anemia Cardiovascular History: Reports: Hx Hypercholesterolemia, Hx Hypertension Respiratory History: Denies: Hx Asthma, Hx Chronic Obstructive Pulmonary Disease (COPD) GI History: Denies: Hx Jaundice, Hx Ulcer Neurological History: Reports: 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 - Surgical History Surgery Procedure, Year, and Place: cyst drainage Infectious Disease History: Denies: Hx Hepatitis, Hx Human Immunodeficiency Virus (HIV), History Other Infectious Disease, Traveled Outside the [place] in Last 30 Days - Family History Known Family History: Positive: Hypertension, Diabetes Negative: Cardiac Disease - Social History Alcohol Use: Rare Alcohol Amount: holidays Hx Substance Use: No Substance Use Type: Reports: None Hx Tobacco Use: No Smoking Status (MU): Never Smoked Tobacco Review of Systems Constitutional: Negative Negative: Fever, Chills Eyes: Negative Negative: Erythema ENT: Negative Negative: Sore Throat Positive: Palpitations. Negative: Chest Pain Respiratory: Negative Negative: Shortness Of Breath, Cough Positive: Nausea. Negative: Abdominal Pain, Vomiting Genitourinary: Negative Negative: dysuria, hematuria Musculoskeletal: Negative Negative: Edema - legs Skin: Negative Negative: Rash Neurological: Other - dizziness, lightheadedness, "strange" feeling in her left hand Psychological: Normal All Other Systems Reviewed And Are Negative: Yes Physical Exam - Summary Physical Exam Summary: Constitutional: Well-developed, Well-nourished, Alert. (-) Distressed Skin: Warm, Dry HENT: Normocephalic; Atraumatic Eyes: Conjunctiva normal Neck: Musculoskeletal ROM normal neck. (-) JVD, (-) Stridor, (-) Tracheal deviation Cardio: Rhythm regular, tachcardia, Heart sounds normal; Intact distal pulses; The pedal pulses are 2+ and symmetric. Radial pulses are 2+ and symmetric. (-) Murmur Pulmonary/Chest wall: Effort normal. (-) Respiratory distress, (-) Wheezes, (-) Rales Abd: Soft, (-) Tenderness, (-) Distension, (-) Guarding, (-) Rebound Musculoskeletal: (-) Edema Lymph: (-) Cervical adenopathy Neuro: Alert, Oriented x3 Psych: Mood and affect Normal Triage Information Reviewed: Yes Vital Signs On Initial Exam: Initial Vitals Temp Pulse Resp BP Pulse Ox 98.1 F 175 20 124/107 100 12/11/16 07:50 12/11/16 07:50 12/11/16 07:50 12/11/16 07:50 12/11/16 07:50 Vital Signs Reviewed: Yes Diagnostics - Vital Signs Vital Signs Temp Pulse Resp BP Pulse Ox 12/11/16 07:50 98.1 F 175 20 124/107 100 - Laboratory Result Diagrams: 12/11/16 08:00 12/11/16 08:00 Lab Statement: Any lab studies that have been ordered have been reviewed, and results considered in the medical decision making process. - Radiology CXR Xray Interpretation: No Acute Changes - IMPRESSION: Stigmata of potential chronic obstructive pulmonary disease. No acute cardiopulmonary process evident. Radiology Interpretation Completed By: Radiologist - EKG 0751 Cardiac Rate: Tachycardia - 164 EKG Interpretation: Sinus tach 164 BPM, no STEMI, SVT, ST depressions in anterolateral 0941 Cardiac Rate: NL - 69 BPM EKG Interpretation: NSR @ [address] depressions and SVT resolved. Course/Dx - Course Assessment/Plan: Noemi Corea is a 46 yo female presenting to [facility] with palpitations, dizziness, lightheadedness, and nausea since 0620 this morning, heart rate is 177 at triage. She received ASA, adenocard, and IV fluids in the ED. Her medication list is reviewed this visit. She was advised that further observation will be the safest way to monitor her condition. Her EKG suggests SVT and ST depressions in anterolateral leads. Her CXR suggests no acute cardiopulmonary process is evident, but there is evidence of stigmata of potential COPD. After clinical examination and review of lab and imaging studies , as well as discussion with Dr. Greenfield, Dr. Rubio, and Dr. Marmolejo, she will be admitted to [facility] with SVT and CP unspecified. - Diagnoses Provider Diagnoses: SVT (supraventricular tachycardia), Chest pain, unspecified - Physician Notifications Discussed Care Of Patient With: 0912 - Dr. Greenfield (hospitalist) - discussed Pt condition, recommends consult with Dr. Rubio. 0915 - Dr. Rubio (primary care) - discussed Pt condition, requests admission for Pt. 0920 - Dr. Greenfield ( hospitalist) - discussed consult with Dr. Rubio, requests cardiology consult. Will admit Pt. 0940 - Dr. Marmolejo (cardiology) - discussed Pt condition, is aware of Pt's admission. Instructed by Provider To: Admit As Inpatient - Critical Care Time Critical Care Time: 30-74 min Discharge - Discharge Plan Condition: Stable Disposition: ADMITTED TO [facility] Discharge Disposition Comment: further observation and evaluation of SVT and CP unspecified Referrals: Orlando Rubio MD [Primary Care Provider] - The documentation as recorded by the yuri teresa Timothy accurately reflects the service I personally performed and the decisions made by , Jurgen Adler MD.
== END 2016-12-12 17:52 | disposition home or self-care (01) ==
LOC: ED 07:48 → MEDTELE 09:30
PROVIDERS: ADMIT Hospitalist; ATTEND Internal Medicine
DX: R00.2 Palpitations (principal); R42 Dizziness and giddiness; E10.9 Type 1 diabetes mellitus without complications; I10 Essential (primary) hypertension; E03.9 Hypothyroidism, unspecified; I47.1 Supraventricular tachycardia; I51.7 Cardiomegaly; Z79.4 Long term (current) use of insulin; Z79.899 Other long term (current) drug therapy
CPT/HCPCS: 36415; 71010; 80048; 80053; 83605; 83735; 84436; 84443; 84484; 85025; 93005; 93306; 93350; 96361; 96365; 96375; 99291; A9270-GY; J0153

== ENCOUNTER 2017-06-26 18:10 | Emergency (ER) | payer OTHER ==
[2017-06-26 18:18] VITALS: BP 140/96
--- NOTE | 2017-06-26 19:12 | UC ---
Skin Complaint HPI - HPI Summary HPI Summary: 46 year old female with history of HTN, IDDM (on insulin pump)here with diffuse rash to chest, abdomen and legs that started two days ago. She was seen by her pmd and started on antihistamine and topic meds. Symptoms not improved, prompting her to come to the . Subjective fever and itching in her throat. No n/vomiting. No new medications or recent change in her medications. - History of Current Complaint Chief Complaint: UCAllergicReaction Time Seen by Provider: 06/26/17 18:40 Stated Complaint: ALLERGIC REACTION Hx Obtained From: Patient Hx Last Menstrual Period: 2011 Onset/Duration: Gradual Onset Skin Exposure Onset/Duration: Days Ago Timing: Constant Onset Severity: Mild Location: Diffuse Associated Signs & Symptoms: Positive: Negative, Rash - Allergy/Home Medications Allergies/Adverse Reactions: Allergies Allergy/AdvReac Type Severity Reaction Status Date / Time No Known Allergies Allergy Verified 06/26/17 18:19 Home Medications: Home Medications Triamcinolone 0.1% CREAM (NF) [Kenalog 0.1% Cream (NF)] 1 applic .SEE ORDER [History] hydrOXYzine HCL TAB* [Atarax 25 MG TAB*] 1 - 2 tab PO Q8HR 06/26/17 [History Confirmed 06/26/17] Review of Systems Constitutional: Chills Skin: Rash Eyes: Negative ENT: Negative Respiratory: Negative Cardiovascular: Negative Gastrointestinal: Negative Genitourinary: Negative Motor: Negative Neurovascular: Negative Musculoskeletal: Negative Neurological: Negative Psychological: Negative All Other Systems Reviewed And Are Negative: Yes PMH/Surg Hx/FS Hx/Imm Hx - Surgical History Surgical History: Yes Surgery Procedure, Year, and Place: cyst drainage - Family History Known Family History: Positive: None, Hypertension, Diabetes Negative: Cardiac Disease - Social History Alcohol Use: None Alcohol Amount: holidays Substance Use Type: None Smoking Status (MU): Never Smoked Tobacco - Immunization History Most Recent Influenza Vaccination: none Most Recent Tetanus Shot: within 10 years Most Recent Pneumonia Vaccination: never Physical Exam Triage Information Reviewed: Yes Appearance: Well-Appearing, No Pain Distress Vital Signs: Initial Vital Signs Temp 37.4 C 06/26/17 18:13 Pulse 86 06/26/17 18:13 Resp 16 06/26/17 18:13 BP 140/96 06/26/17 18:13 Pulse Ox 100 06/26/17 18:13 ENT: Positive: Normal ENT inspection, Other - No oral lesions Neck: Positive: Supple Respiratory: Positive: Chest non-tender Cardiovascular Exam: Normal Cardiovascular: Positive: RRR Skin: Positive: Other - Diffuse erythroderma to right chest. Blanching No petechiae Right sided of chest with patches of erythema, not warm to touch. NO vesicular lesion. No lesions on sole and palms. No fluctuance, no crepitus. Diagnostics - Laboratory Diagnostic Studies Completed/Ordered: Finger glucose level 104 Course/Dx - Course Course Of Treatment: rash NOS. Patient does not have any "red flags" for life threatening symptoms for TEN, EM or SJS on my exam. She is afebrile with normal finger glucose level. She had blood work in her PMD office today to result tomorrow. She will see her PMD tomorrow for follow up and if symptoms worsen, she will go to the ED. - Differential Diagnoses - Skin Complaint Differential Diagnoses: Cellulitis, Eczema, Viral Exanthem - Diagnoses Provider Diagnoses: Rash Discharge - Discharge Plan Condition: Good Disposition: HOME Referrals: Orlando Rubio MD [Primary Care Provider] - Additional Instructions: Follow up with your primary care doctor tomorrow. If you develop fever at home, worsening of the symptoms, vomiting or any other severe illness, please go to the nearest emergency department
== END 2017-06-26 19:29 | disposition home or self-care (01) ==
LOC: UCEAST 18:10
DX: R21 Rash and other nonspecific skin eruption (principal); E11.9 Type 2 diabetes mellitus without complications; Z96.41 Presence of insulin pump (external) (internal)
CPT/HCPCS: 99211; G0463

== ENCOUNTER 2018-10-25 20:23 | Emergency (ER) | payer OTHER ==
[2018-10-25 20:37] VITALS: BP 141/91
[2018-10-25] MEDS ORDERED: Amoxicillin PO (*) 500 MG CAP PO ONE (20:59)
[2018-10-25] MEDS ORDERED: HYDROcodone/ACETAMIN 5-325 MG* 1 TAB PO ONE (21:00)
--- NOTE | 2018-10-25 21:02 | UC ---
UC Dental HPI - HPI Summary HPI Summary: 48-year-old woman comes in with a chief complaint of left lower dental pain and swelling. Started several days ago. Pain is worse with any Chewing or palpation. Tylenol does help with the pain. No fevers or chills. Patient reports her blood sugars have been well-controlled. - History of Current Complaint Chief Complaint: UCDentalProblem Stated Complaint: TOOTH ACHE Time Seen by Provider: 10/25/18 20:52 Hx Last Menstrual Period: post menopause Pain Intensity: 9 - Allergies/Home Medications Allergies/Adverse Reactions: Allergies Allergy/AdvReac Type Severity Reaction Status Date / Time No Known Allergies Allergy Verified 06/26/17 18:19 Home Medications: Home Medications Simvastatin 20 mg PO 10/25/18 [History] Sotalol TAB* [Betapace 80 MG TAB*] 40 mg 10/25/18 [History] PMH/Surg Hx/FS Hx/Imm Hx Previously Healthy: Yes Endocrine History: Diabetes, Hypothyroidism Cardiovascular History: Hypertension - Surgical History Surgical History: Yes Surgery Procedure, Year, and Place: cyst drainage - Family History Known Family History: Positive: None, Hypertension, Diabetes Negative: Cardiac Disease - Social History Alcohol Use: None Alcohol Amount: holidays Substance Use Type: None Smoking Status (MU): Never Smoked Tobacco - Immunization History Most Recent Influenza Vaccination: none Most Recent Tetanus Shot: within 10 years Most Recent Pneumonia Vaccination: never Review of Systems All Other Systems Reviewed And Are Negative: Yes Constitutional: Positive: Negative Skin: Positive: Negative Eyes: Positive: Negative ENT: Positive: Dental Pain Respiratory: Positive: Negative Cardiovascular: Positive: Negative Gastrointestinal: Positive: Negative Motor: Positive: Negative Neurovascular: Positive: Negative Musculoskeletal: Positive: Negative Neurological: Positive: Negative Psychological: Positive: Negative Is Patient Immunocompromised?: No Physical Exam Triage Information Reviewed: Yes Appearance: Well-Appearing, Well-Nourished, Pain Distress - mild Vital Signs: Initial Vital Signs Temp 97.0 F 10/25/18 20:31 Pulse 62 10/25/18 20:31 Resp 16 10/25/18 20:31 BP 141/91 10/25/18 20:31 Pulse Ox 98 10/25/18 20:31 Vital Signs Reviewed: Yes Eye Exam: Normal Eyes: Positive: Conjunctiva Clear ENT: Positive: Pharynx normal - oropharynx open, Uvula midline Dental: Positive: Abscess @ - left lower Neck: Positive: Supple Respiratory: Positive: Lungs clear, Normal breath sounds, No respiratory distress Cardiovascular: Positive: RRR Musculoskeletal Exam: Normal Musculoskeletal: Positive: Strength Intact, ROM Intact Neurological Exam: Normal Neurological: Positive: Alert, Muscle Tone Normal Psychological Exam: Normal Psychological: Positive: Normal Response To Family, Age Appropriate Behavior Skin Exam: Normal Dental Complaint Course/Dx - Differential Dx/Diagnosis Provider Diagnosis: Dental abscess Discharge - Sign-Out/Discharge Documenting (check all that apply): Patient Departure All imaging exams completed and their final reports reviewed: No Studies - Discharge Plan Condition: Stable Disposition: HOME Prescriptions: Amoxicillin PO (*) [Amoxicillin 500 MG CAP*] 500 mg PO TID #28 cap Patient Education Materials: Dental Abscess (ED) Referrals: Orlnado Rubio MD [Primary Care Provider] - Additional Instructions: FOLLOW UP WITH YOUR DENTIST. GET REEVALUATED SOONER IF YOUR CONDITION WORSENS OR ANY QUESTIONS OR CONCERNS. - Billing Disposition and Condition Condition: STABLE Disposition: Home
== END 2018-10-25 21:17 | disposition home or self-care (01) ==
LOC: UCEAST 20:23
DX: K04.7 Periapical abscess without sinus (principal); I10 Essential (primary) hypertension; E11.9 Type 2 diabetes mellitus without complications; E03.9 Hypothyroidism, unspecified
CPT/HCPCS: 99213; A9270-GY; G0463

== ENCOUNTER 2019-04-27 21:26 | Emergency (ER) | payer OTHER ==
[2019-04-27 21:39] VITALS: BP 143/95
[2019-04-27] MEDS ORDERED: Albuterol HFA INHALER* 8 gm MDI INH ONE (21:50)
--- NOTE | 2019-04-27 21:53 | UC ---
Respiratory Complaint HPI - HPI Summary HPI Summary: Patient is a 48yo female presenting with cough and sore throat x2 days and SOB x1 day. States cough is productive and worse at night. Notes SOB with coughing and exertion. Says it feels like her chest is "tight with mucus." No SOB at rest. Denies wheezing. Denies nasal congestion, sinus tenderness, and ear pain. Denies n/v/d. Denies headache and chills. Notes fever Saturday night, none since. Note son was recently ill with similar symptoms. Denies history of allergies or asthma. - History of Current Complaint Chief Complaint: UCRespiratory Stated Complaint: COLD SYMPTOMS Hx Obtained From: Patient Hx Last Menstrual Period: post menopause Onset/Duration: Sudden Onset, Lasting Days Severity Currently: None Pain Intensity: 0 Pain Scale Used: 0-10 Numeric - Allergies/Home Medications Allergies/Adverse Reactions: Allergies Allergy/AdvReac Type Severity Reaction Status Date / Time No Known Allergies Allergy Verified 04/27/19 21:39 PMH/Surg Hx/FS Hx/Imm Hx Endocrine History: Diabetes - type 1 - Surgical History Surgical History: Yes Surgery Procedure, Year, and Place: cyst drainage - Family History Known Family History: Positive: None, Hypertension, Diabetes Negative: Cardiac Disease - Social History Alcohol Use: None Alcohol Amount: holidays Substance Use Type: None Smoking Status (MU): Never Smoked Tobacco - Immunization History Most Recent Influenza Vaccination: none Most Recent Tetanus Shot: within 10 years Most Recent Pneumonia Vaccination: never Review of Systems All Other Systems Reviewed And Are Negative: Yes Constitutional: Positive: Fever. Negative: Chills, Fatigue Eyes: Positive: Negative ENT: Positive: Sore Throat. Negative: Ear Ache, Nasal Discharge, Sinus Congestion, Sinus Pain/Tenderness Respiratory: Positive: Shortness Of Breath, Cough Cardiovascular: Positive: Negative Gastrointestinal: Positive: Negative. Negative: Abdominal Pain, Vomiting, Diarrhea, Nausea Genitourinary: Positive: Negative Musculoskeletal: Positive: Negative Neurological: Positive: Negative Physical Exam Triage Information Reviewed: Yes Appearance: Well-Appearing, No Pain Distress, Well-Nourished Vital Signs: Initial Vital Signs Temp 98.3 F 04/27/19 21:36 Pulse 70 04/27/19 21:36 Resp 16 04/27/19 21:36 BP 143/95 04/27/19 21:36 Pulse Ox 97 04/27/19 21:36 Vital Signs Reviewed: Yes Eyes: Positive: Conjunctiva Clear ENT: Positive: Hearing grossly normal, Pharyngeal erythema, TMs normal, Uvula midline. Negative: Pharynx normal - PND noted, Nasal congestion, Nasal drainage , TM bulging, TM dull, TM red, Tonsillar swelling, Tonsillar exudate, Hoarse voice, Sinus tenderness Neck exam: Normal Neck: Positive: Supple, Nontender, No Lymphadenopathy Respiratory Exam: Normal Respiratory: Positive: Lungs clear, Normal breath sounds, No respiratory distress. Negative: Crackles, Rhonchi, Stridor, Wheezing Cardiovascular Exam: Normal Cardiovascular: Positive: RRR Neurological: Positive: Alert Psychological: Positive: Age Appropriate Behavior Respiratory Course/Dx - Course Course Of Treatment: Patient received albuterol inhaler here for her SOB and was given 100mg of benzonatate here as well. PAtient was dispensed another dose of benzonatate for the morning until she can go to her pharmacy to fill the prescription. I also told her she may use mucinex to help reduce mucus production and that she may continue ibuprofen as directed for pain relief. Advised patient to follow up with her PCP if her symptoms persist. Patient voiced understanding and agreed to the treatment plan. - Differential Dx/Diagnosis Provider Diagnosis: Acute bronchitis, Upper respiratory infection Discharge ED - Sign-Out/Discharge Documenting (check all that apply): Patient Departure All imaging exams completed and their final reports reviewed: No Studies - Discharge Plan Condition: Stable Disposition: HOME Prescriptions: Benzonatate CAP* [Tessalon 100 MG CAP*] 100 mg PO TID PRN #21 cap PRN Reason: Cough Patient Education Materials: How to Use a Metered-Dose Inhaler and a Spacer (ED ) Referrals: Orlando Rubio MD [Primary Care Provider] - If Needed Additional Instructions: As discussed, take the tessalon perles as prescribed to help alleviate your cough. Use the albuterol inhaler as directed for your shortness of breath. You may take mucinex over the counter to help reduce mucus production. You may take ibuprofen as directed for pain relief. Get plenty of rest and fluids. Return or follow up with your primary care doctor if your symptoms worsen or do not resolve within 7 days. - Billing Disposition and Condition Condition: STABLE Disposition: Home
[2019-04-27] MEDS ORDERED: Benzonatate CAP* 100 MG PO ONE (21:58)
== END 2019-04-27 22:14 | disposition home or self-care (01) ==
LOC: UCEAST 21:26
DX: J20.9 Acute bronchitis, unspecified (principal); J06.9 Acute upper respiratory infection, unspecified; E10.9 Type 1 diabetes mellitus without complications
CPT/HCPCS: 99213; A9270-GY; G0463

== ENCOUNTER 2019-05-09 16:03 | Emergency (ER) | payer OTHER ==
[2019-05-09 16:23] VITALS: BP 134/81
--- NOTE | 2019-05-09 17:07 | UC ---
Respiratory Complaint HPI - HPI Summary HPI Summary: Pt presents with c/o cough, fever, nasal congestion, chest congestion. that began 2 weeks ago, was seen by PCP and given a z-pac. Pt finished z-pac and now states that cough, congestion body aches have returned, cough is worse and is concerned that she has another "chest infection" because she is a diabetic - History of Current Complaint Chief Complaint: UCRespiratory Stated Complaint: COUGH, AND CHEST CONGESTION Time Seen by Provider: 05/09/19 16:58 Hx Obtained From: Patient Hx Last Menstrual Period: post menopause ?: No Onset/Duration: Gradual Onset, Lasting Days, Still Present, Worse Since - onset Timing: Constant Severity Initially: Mild Severity Currently: Moderate Pain Intensity: 0 Character: Cough: Nonproductive Aggravating Factors: Deep Breaths, Recumbent Position Alleviating Factors: Nothing Associated Signs And Symptoms: Positive: URI, Nasal Congestion - Risk Factors Pulmonary Embolism Risk Factors: Negative Cardiac Risk Factors: Hypertension, Diabetes, Elevated Lipids, CAD Pseudomonas Risk Factors: Negative Tuberculosis Risk Factors: Diabetes - Allergies/Home Medications Allergies/Adverse Reactions: Allergies Allergy/AdvReac Type Severity Reaction Status Date / Time No Known Allergies Allergy Verified 05/09/19 16:23 PMH/Surg Hx/FS Hx/Imm Hx Previously Healthy: Yes Endocrine History: Diabetes, Dyslipidemia Cardiovascular History: Cardiac Disease, Hypertension - Surgical History Surgical History: Yes Surgery Procedure, Year, and Place: cyst drainage - Family History Known Family History: Positive: None, Hypertension, Diabetes Negative: Cardiac Disease - Social History Occupation: Employed Full-time Lives: With Family Alcohol Use: None Alcohol Amount: holidays Substance Use Type: None Smoking Status (MU): Never Smoked Tobacco Have You Smoked in the Last Year: No - Immunization History Most Recent Influenza Vaccination: none Most Recent Tetanus Shot: within 10 years Most Recent Pneumonia Vaccination: never Vaccination Up to Date: Yes Review of Systems All Other Systems Reviewed And Are Negative: Yes Constitutional: Positive: Fever, Chills, Fatigue Skin: Positive: Negative Eyes: Positive: Negative ENT: Positive: Sinus Congestion Respiratory: Positive: Cough Cardiovascular: Positive: Negative Gastrointestinal: Positive: Negative Genitourinary: Positive: Negative Motor: Positive: Negative Neurovascular: Positive: Negative Musculoskeletal: Positive: Negative Neurological: Positive: Negative Psychological: Positive: Negative Is Patient Immunocompromised?: No Physical Exam Triage Information Reviewed: Yes Appearance: Ill-Appearing Vital Signs: Initial Vital Signs Temp 99.2 F 05/09/19 16:18 Pulse 62 05/09/19 16:18 Resp 16 05/09/19 16:18 BP 134/81 05/09/19 16:18 Pulse Ox 100 05/09/19 16:18 Vital Signs Reviewed: Yes Eye Exam: Normal ENT: Positive: Nasal congestion Dental Exam: Normal Neck exam: Normal Respiratory: Positive: Decreased breath sounds Cardiovascular Exam: Normal Musculoskeletal Exam: Normal Neurological Exam: Normal Psychological Exam: Normal Skin Exam: Normal Respiratory Course/Dx - Differential Dx/Diagnosis Differential Diagnosis/HQI/PQRI: Bronchitis, Influenza Provider Diagnosis: Bronchitis Discharge ED - Sign-Out/Discharge Documenting (check all that apply): Patient Departure All imaging exams completed and their final reports reviewed: No Studies - Discharge Plan Condition: Stable Disposition: HOME Prescriptions: Amoxicillin/Clavulanate TAB* [Augmentin TAB 500 mg*] 500 mg PO Q12H #20 tab Benzonatate CAP* [Tessalon 100 MG CAP*] 200 mg PO Q8H PRN #30 cap PRN Reason: Cough Patient Education Materials: Acute Bronchitis (ED) Referrals: Orlando Rubio MD [Primary Care Provider] - As Soon As Possible - Billing Disposition and Condition Condition: STABLE Disposition: Home
== END 2019-05-09 17:20 | disposition home or self-care (01) ==
LOC: UCEAST 16:03
DX: J40 Bronchitis, not specified as acute or chronic (principal); R52 Pain, unspecified; E11.9 Type 2 diabetes mellitus without complications; I10 Essential (primary) hypertension
CPT/HCPCS: 99212; G0463

== ENCOUNTER 2019-07-05 15:26 | Emergency (ER) | payer OTHER ==
[2019-07-05 15:48] VITALS: BP 148/94
--- NOTE | 2019-07-05 16:10 | UC ---
UC General HPI - HPI Summary HPI Summary: 48-year-old coming in with chief complaint of leg pain. Yesterday morning patient had right upper inner thigh pain. She took ibuprofen and that helped the pain. This morning when she woke up she had upper thigh pain bilaterally. She reports occasionally her right foot felt numb. Other than the numbness she did not perceive any weakness. The pain is severe in the makes it very difficult for her to walk. Patient took ibuprofen this morning which did decrease the pain but the pain has come back again and it is so severe it makes it very difficult for her to walk. No abdominal pain back pain no dysuria. Patient wonders if the blood clot. Patient does have diabetes and she reported a blood sugar of 250 at home. - History of Current Complaint Chief Complaint: UCLowerExtremity Stated Complaint: RT LEG PAIN Time Seen by Provider: 07/05/19 15:45 Hx Last Menstrual Period: post menopause Pain Intensity: 4 - Allergy/Home Medications Allergies/Adverse Reactions: Allergies Allergy/AdvReac Type Severity Reaction Status Date / Time No Known Allergies Allergy Verified 07/05/19 15:48 PMH/Surg Hx/FS Hx/Imm Hx Previously Healthy: Yes Endocrine History: Diabetes, Dyslipidemia Cardiovascular History: Hypertension, Other - SVT - Surgical History Surgical History: Yes Surgery Procedure, Year, and Place: cyst drainage - Family History Known Family History: Positive: None, Hypertension, Diabetes Negative: Cardiac Disease - Social History Alcohol Use: Rare Alcohol Amount: holidays Substance Use Type: None Smoking Status (MU): Never Smoked Tobacco Have You Smoked in the Last Year: No - Immunization History Most Recent Influenza Vaccination: none Most Recent Tetanus Shot: within 10 years Most Recent Pneumonia Vaccination: never Vaccination Up to Date: Yes Review of Systems All Other Systems Reviewed And Are Negative: Yes Constitutional: Positive: Other - SEE HPI Skin: Positive: Other - SEE HPI Eyes: Positive: Negative ENT: Positive: Negative Respiratory: Positive: Negative Cardiovascular: Positive: Negative Gastrointestinal: Positive: Negative Genitourinary: Positive: Negative Motor: Positive: Other - SEE HPI Neurovascular: Positive: Other - SEE HPI Musculoskeletal: Positive: Other: - SEE HPI Neurological: Positive: Other - SEE HPI Psychological: Positive: Negative Is Patient Immunocompromised?: No Physical Exam Triage Information Reviewed: Yes Appearance: Well-Appearing, Well-Nourished, Pain Distress - WITH ROM Vital Signs: Initial Vital Signs Temp 100.1 F 07/05/19 15:39 Pulse 75 07/05/19 15:39 Resp 16 07/05/19 15:39 BP 148/94 07/05/19 15:39 Pulse Ox 99 07/05/19 15:39 Vital Signs Reviewed: Yes Eye Exam: Normal Eyes: Positive: Conjunctiva Clear Neck: Positive: Supple Respiratory: Positive: Lungs clear, Normal breath sounds, No respiratory distress Cardiovascular: Positive: RRR Musculoskeletal: Positive: Other: - On examination of the legs; legs have full strength and range of motion. On the upper inner thighs of the areas that the patient has pain and do not perceive any rash. It is tender to palpation bilaterally in her upper thighs. Neurological: Positive: Alert Psychological: Positive: Age Appropriate Behavior Skin Exam: Normal Course/Dx - Course Course Of Treatment: Because of the severity of the pain and the patient's temperature being slightly elevated with her risk factors of diabetes I recommended further evaluation in the emergency department. Here in clinic today we cannot get labs back until tomorrow and we do not have ultrasound. Patient prefers to go by POV. - Diagnoses Provider Diagnosis: Leg pain, bilateral, Fever Discharge ED - Sign-Out/Discharge Documenting (check all that apply): Patient Departure All imaging exams completed and their final reports reviewed: No Studies - Discharge Plan Condition: Stable Disposition: HOME-RECOMMEND TO ED Referrals: Orlando Rubio MD [Primary Care Provider] - Additional Instructions: GO DIRECTLY TO THE EMERGENCY DEPARTMENT FOR FURTHER EVALUATION OF YOUR BILATERAL LEG PAIN AND ELEVATED TEMPERATURE OF 100.1 DEGREES. - Billing Disposition and Condition Condition: STABLE Disposition: Home-Recommend to ED
== END 2019-07-05 16:24 | disposition home health service (06) ==
LOC: UCEAST 15:26
DX: M79.605 Pain in left leg (principal); M79.604 Pain in right leg; E11.9 Type 2 diabetes mellitus without complications; I10 Essential (primary) hypertension; R50.9 Fever, unspecified
CPT/HCPCS: 99212; G0463

== ENCOUNTER 2019-07-05 16:45 | Emergency (ER) | payer OTHER ==
[2019-07-05 18:18] LABS: ABS Basophils 0.1 10^3/ul (0-0.2); ABS Eosinophils 0.2 10^3/ul (0-0.6); ABS Lymphocytes 1.8 10^3/ul (1.0-4.8); ABS Monocytes 0.7 10^3/ul (0-0.8); ABS Neutrophils 4.5 10^3/ul (1.5-7.7); Eosinophil % 2.8 %; Hematocrit 39 % (35-47); Hemoglobin 13.4 g/dL (12.0-16.0); Lymphocyte % 24.3 %; Mean Corpuscular HGB Conc 34 g/dL (31-36); Mean Corpuscular Hemoglobin 30 pg (27-31); Mean Corpuscular Volume 87 fL (80-97); Mean Platelet Volume 9.1 fL (7.4-10.4); Platelet Count 172 10^3/uL (150-450); Red Blood Count 4.52 10^6 /uL (3.70-4.87); Red Cell Distribution Width 13 % (10-15); White Blood Count 7.2 10^3/uL (3.5-10.8)
--- NOTE | 2019-07-05 18:18 | ED ---
Lower Extremity - HPI Summary HPI Summary: 48-year-old female presents with bilateral leg pain for the past couple days. She states that it started with her right leg. She denies any injury. No back pain. No urinary symptoms. No loss of bowel or bladder. No saddle anasethesia. no abdominal pain. States she's been having some difficulty walking due to pain. she denies any weakness. no rash. No numbness or tingling. States she is an extreme pain. no recent travel. no fam hx of blood clots. no calf pain. no chest pain or SOB. she is diabetic type 1. no history of back pain. was seen at urgent care and had a potential fever. no recent illness. - History of Current Complaint Chief Complaint: EDExtremityLower Stated Complaint: PAIN IN BOTH LEGS PER PT Time Seen by Provider: 07/05/19 17:37 Hx Last Menstrual Period: post menopause Pain Intensity: 8 - Allergies/Home Medications Allergies/Adverse Reactions: Allergies Allergy/AdvReac Type Severity Reaction Status Date / Time No Known Allergies Allergy Verified 07/05/19 16:58 PMH/Surg Hx/FS Hx/Imm Hx Endocrine/Hematology History: Reports: Hx Diabetes - type 1, Hx Thyroid Disease - HYPOTHYROID Denies: Hx Anemia Cardiovascular History: Reports: Hx Hypercholesterolemia, Hx Hypertension Respiratory History: Denies: Hx Asthma, Hx Chronic Obstructive Pulmonary Disease (COPD) GI History: Denies: Hx Jaundice, Hx Ulcer History: Denies: Hx Dialysis Sensory History: Reports: Hx Contacts or Glasses - reading only, not present upon admission Denies: Hx Deafness, Hx Hearing Aid Opthamlomology History: Reports: Hx Contacts or Glasses - reading only, not present upon admission Neurological History: Reports: 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 Psychiatric History: Denies: Hx Autism - Cancer History Hx Chemotherapy: No Hx Radiation Therapy: No - Surgical History Surgery Procedure, Year, and Place: cyst drainage Infectious Disease History: Yes Infectious Disease History: Denies: Hx Hepatitis, Hx Human Immunodeficiency Virus (HIV), History Other Infectious Disease, Traveled Outside the [place] in Last 30 Days - Family History Known Family History: Positive: None, Hypertension, Diabetes Negative: Cardiac Disease - Social History Alcohol Use: Rare Alcohol Amount: holidays Hx Substance Use: No Substance Use Type: Reports: None Hx Tobacco Use: No Smoking Status (MU): Never Smoked Tobacco Have You Smoked in the Last Year: No Review of Systems Negative: Fever Negative: Chest Pain Negative: Shortness Of Breath Positive: Myalgia - bilateral thigh pain All Other Systems Reviewed And Are Negative: Yes Physical Exam Triage Information Reviewed: Yes Vital Signs On Initial Exam: Initial Vitals Temp Pulse Resp BP Pulse Ox 98.8 F 66 20 137/84 98 07/05/19 16:45 07/05/19 16:45 07/05/19 16:45 07/05/19 16:45 07/05/19 16:45 Vital Signs Reviewed: Yes Appearance: Positive: Well-Appearing Skin: Positive: Warm, Dry Head/Face: Positive: Normal Head/Face Inspection Eyes: Positive: Normal, Conjunctiva Clear ENT: Positive: Pharynx normal Respiratory/Lung Sounds: Positive: Clear to Auscultation, Breath Sounds Present Cardiovascular: Positive: Normal, RRR Musculoskeletal: Positive: Strength/ROM Intact - back, Limited @ - bilateral leg pain, Other - able to raise legs with pain. neg SLR, sensation grossly intact, good pulses Neurological: Positive: Normal, Babinski Bilateral - normal Psychiatric: Positive: Normal Procedures - Sedation Patient Received Moderate/Deep Sedation with Procedure: No Diagnostics - Vital Signs Vital Signs Temp Pulse Resp BP Pulse Ox 07/05/19 18:00 66 99 07/05/19 17:30 70 98 07/05/19 16:45 98.8 F 66 20 137/84 98 - Laboratory Result Diagrams: 07/05/19 18:01 07/05/19 18:01 Lab Statement: Any lab studies that have been ordered have been reviewed, and results considered in the medical decision making process. - CT back CT Interpretation Completed By: Radiologist Summary of CT Findings: IMPRESSION: 1. No acute findings. 2. Mild lumbar spondylosis, disc disease. 3. If further evaluation of the intervertebral discs , canal, cord, foramina is indicated MR correlation recommended. - Ultrasound No standard instances Ultrasound Interpretation Completed By: Radiologist Summary of Ultrasound Findings: IMPRESSION: No acute findings. No evidence of deep vein thrombosis. Lower Extremity Course/Dx - Course Course Of Treatment: 48-year-old female presents with bilateral leg pain for the past couple days. She states that it started with her right leg. She denies any injury. No back pain. No urinary symptoms. No loss of bowel or bladder. No saddle anasethesia. no abdominal pain. States she's been having some difficulty walking due to pain. she denies any weakness. no rash. No numbness or tingling. States she is an extreme pain. no recent travel. no fam hx of blood clots. no calf pain. no chest pain or SOB. she is diabetic type 1. no history of back pain. was seen at urgent care and had a potential fever. no recent illness. on exam has tenderness over bilateral inner thigh. neurovascular intact. normal babinski. nontender back. is slow to ambulate but can do such. u/s no dvt. wbc normal. potassium 3.3 so gave supplement. crp 10. CT lumbar no acute findings. discussed should follow up with primary as may need MRI in future as this maybe coming from here back. warned of symptoms return to ED for. patient mom understand and agrees with plan. - Diagnoses Differential Diagnosis/HQI/PQRI: Positive: Dislocation, Sprain, Strain Provider Diagnoses: Bilateral leg pain Discharge ED - Sign-Out/Discharge Documenting (check all that apply): Patient Departure - Discharge Plan Condition: Good Disposition: HOME Patient Education Materials: Leg Pain (ED) Forms: *Work Release Referrals: Orlando Rubio MD [Primary Care Provider] - Additional Instructions: follow up with primary within 5 days apply heat take tyenlol or ibuprofen every 6 hours for pain Return to ED if develop fever or any new or worsening symptoms - Billing Disposition and Condition Condition: GOOD Disposition: Home - Attestation Statements Provider Attestation: I was available for consultation for this patient. I did not evaluate the patient, or participate in any medical decision making or disposition decisions unless I am specifically named in the chart as having consulted on the patient. If I have consulted on the patient, please see my own ED note on the patient encounter. Therese Cox MD
[2019-07-05] MEDS ORDERED: Ketorolac INJ* 30 MG/ML 1 ML VIAL IM ONE (18:21)
[2019-07-05 18:28] LABS: INR 0.97 (0.82-1.09)
[2019-07-05 18:35] LABS: Albumin 3.4 g/dL (3.2-5.2); Albumin/Globulin Ratio 0.9 (1-3); BUN/Creatinine Ratio 17.5 (8-20); C Reactive Protein 10.1 mg/L (<8.01); Calcium 9.2 mg/dL (8.6-10.3); EGFR African American 136.4 (>60); EGFR Non-African American 112.7 (>60); Globulin 3.7 g/dL (2-4); Magnesium 1.9 mg/dL (1.9-2.7); Potassium 3.3 mmol/L (3.5-5.0); Total Bilirubin 0.4 mg/dL (0.2-1.0); Total Protein 7.1 g/dL (6.4-8.9)
[2019-07-05] MEDS ORDERED: Potassium Chlor TAB* 20 MEQ TAB.ER PO ONE (19:55)
[2019-07-05 20:10] VITALS: BP 177/112
== END 2019-07-05 20:09 | disposition home or self-care (01) ==
LOC: ED 16:45
DX: M79.605 Pain in left leg (principal); M79.604 Pain in right leg; E10.9 Type 1 diabetes mellitus without complications; E03.9 Hypothyroidism, unspecified; E78.00 Pure hypercholesterolemia, unspecified; I10 Essential (primary) hypertension
CPT/HCPCS: 36415; 72131; 80053; 83605; 83735; 85025; 85610; 86140; 93970; 96372; 99282; A9270-GY; J1885